=== PATIENT | male | born 1960 | race Caucasian/White ===

== ENCOUNTER 2019-08-03 18:32 | Inpatient (IN) | payer MEDICARE, OTHER ==
[~2019-08-03] VITALS: Ht 182.9 cm; Wt 77.1 kg
--- NOTE | 2019-08-03 18:32 | NUR ---
Surgical mask provided. Patient is AOx4, c/o chest pains for 5 years, worse for past 5 days. Patient admits to etoh abuse & being homeless.
--- NOTE | 2019-08-03 18:46 | NUR ---
Alesia ron in [facility] - 08/03/19 at [address] [email or web address], medicl screening exam in progress
--- NOTE | 2019-08-03 18:58 | NUR ---
Patient is resting comfortably on gurney, pending MD evaluation@this time
--- NOTE | 2019-08-03 19:09 | NUR ---
Dr [email or web address], medical screening exam in progress. Hands off report given to BRITTANY Johnson.
[2019-08-03 19:25] LABS: BASOPHILS # (AUTO) 0.1 K/uL (0.0-8.0); BASOPHILS % (AUTO) 2.3 % (0.0-2.0); EOSINOPHILS # (AUTO) 0.1 K/uL (0.0-0.7); EOSINOPHILS % (AUTO) 1.3 % (0.0-7.0); HEMATOCRIT 37.1 % (36.7-47.1); HEMOGLOBIN 12.5 g/dL (12.5-16.3); LYMPHOCYTES # (AUTO) 2.2 K/uL (20.0-40.0); LYMPHOCYTES % (AUTO) 35.3 % (20.5-51.5); MEAN CORPUSCULAR HEMOGLOBIN 35.6 uug (23.8-33.4); MEAN CORPUSCULAR HGB CONC 34 g/dL (32.5-36.3); MEAN CORPUSCULAR VOLUME 105.8 fL (73.0-96.2); MONOCYTES # (AUTO) 0.4 K/uL (2.0-10.0); MONOCYTES % (AUTO) 6.8 % (0.0-11.0); NEUTROPHILS # (AUTO) 3.5 K/uL (1.8-8.9); NEUTROPHILS % (AUTO) 54.3 % (38.5-71.5); PLATELET COUNT (AUTO) 72 K/uL (152-348); RED BLOOD CELL COUNT(AUTO) 3.51 MIL/uL (4.06-5.63); WHITE BLOOD COUNT (AUTO) 6.4 K/uL (3.6-10.2)
[2019-08-03 19:27] LABS: ABG BASE EXCESS 1.9 mmol/L; ABG HCO3 25.2 mmol/L; ABG PCO2 35.4 mmHg (35.0-45.0); ABG PH 7.471 (7.350-7.450); ABG PO2 76.7 mmHg (75.0-100.0); ABG SITE LEFT RADIAL; ABG TOTAL HEMOGLOBIN 13.3 G/dL (13.5-18.0); COHb 4.2 % (0.5-1.5); MetHb 0.4 % (0.0-1.5); O2Hb 89.6 % (94.0-97.0); VENT MODE Nasal Cannula
[2019-08-03 19:33] LABS: CREATININE 0.7 mg/dL (0.6-1.3); POTASSIUM 3.4 mmol/L (3.5-5.1)
[2019-08-03 19:47] LABS: BILIRUBIN,DIRECT 1.4 mg/dL (0.0-0.2); BILIRUBIN,TOTAL 1.9 mg/dL (0.2-1.0); TOTAL PROTEIN, SERUM 7.7 g/dL (6.4-8.2)
[2019-08-03 19:48] LABS: CREATINE KINASE, TOTAL 119 U/L (39-308)
[2019-08-03] MEDS ORDERED: ALBUTEROL SULFATE 8 GM HFA.AER.AD IH ONE (20:00)
[2019-08-03] MEDS ORDERED: ASPIRIN 325 MG TABLET PO ONE (20:00)
[2019-08-03] MEDS ORDERED: IV NS 1000 ML 1,000 ML IV ONE (20:00)
[2019-08-03] MEDS ORDERED: ASPIRIN 325 MG TABLET ONE (20:01)
[2019-08-03 20:09] LABS: FERRITIN 596 ng/mL (26-388); LACTATE DEHYDROGENASE 316 U/L (85-227)
--- NOTE | 2019-08-03 20:26 | NUR ---
Paged Epic panel for as requested by Dr Trivedi. Waiting for Wai SURVEY DATA TECHNICIAN to call back.
--- NOTE | 2019-08-03 20:35 | NUR ---
Dr Trivedi speaking with Judit Carreno national dedicated truck driver for Epic panel.
[2019-08-03] MEDS ORDERED: IOHEXOL 350 100 ML INFUS..BTL ONE (20:50)
[2019-08-03] MEDS ORDERED: SWABABLE VALVE TRANSFER SET EA MC ONE (20:50)
[2019-08-03] MEDS ORDERED: IV NORMAL SALINE 250 ML IV ONE (20:50)
[2019-08-03] MEDS ORDERED: ALBUTEROL SULFATE 8 GM HFA.AER.AD IH PRN (21:00)
[2019-08-03] MEDS ORDERED: ONDANSETRON 4 MG/2 ML VIAL IV PRN (21:00)
[2019-08-03] MEDS ORDERED: methylPREDNISolone SOD SUCC 125 MG/2 ML VIAL IV ONE (21:00)
[2019-08-03] MEDS ORDERED: LORAZEPAM 2 MG/1 ML VIAL IV PRN (21:30)
[2019-08-03] MEDS ORDERED: CHLORDIAZEPOXIDE HCL 25 MG CAPSULE PO ONE (22:30)
--- NOTE | 2019-08-03 22:36 | NUR ---
DR MON SPOKE WITH DOUG LARA MADE AWARE OF CTA RESULTS WILL ADMIT TO TELE.
--- NOTE | 2019-08-03 22:50 | NUR ---
PATIENT RECEIVED FROM ER. INTOXICATED AND UNABLE RESPOND CORRECTLY AND INCORPORATIVE. CUSSING AND YELLING AT STAFF MEMBERS.
[2019-08-03 23:30] VITALS: BP 113/68
--- NOTE | 2019-08-03 23:30 | NUR ---
PATIENT REFUSING SKIN CHECK. ASSESSMENT OF SKIN HAS A LOT OF MUD LIKE SUBSTANCE AND BLACK STAINS. AGGRESSIVE TOWARDS STAFF. MEDICATIONS ADMINISTERED. SNACKS PROVIDED. NSR ON TELE MONITOR.
[2019-08-03] MEDS: HYDROXYCHLOROQUINE SULFATE 200 MG TABLET PO SCH (23:35)
[2019-08-04 04:00] VITALS: BP 139/76
--- NOTE | 2019-08-04 04:03 | NUR ---
patient resting comfortably. no s/s of acute distress noted. NSR on tele monitor. IV site patent and intact. v/s stable. will continue to monitor.
--- NOTE | 2019-08-04 06:09 | NUR ---
Pt refused ABG.
[2019-08-04 06:41] LABS: BASOPHILS % (AUTO) 0.9 % (0.0-2.0); EOSINOPHILS % (AUTO) 0.1 % (0.0-7.0); HEMATOCRIT 37.9 % (36.7-47.1); HEMOGLOBIN 12.9 g/dL (12.5-16.3); LYMPHOCYTES # (AUTO) 0.3 K/uL (20.0-40.0); LYMPHOCYTES % (AUTO) 10.6 % (20.5-51.5); MEAN CORPUSCULAR HGB CONC 34 g/dL (32.5-36.3); MEAN CORPUSCULAR VOLUME 105.9 fL (73.0-96.2); MONOCYTES # (AUTO) 0.1 K/uL (2.0-10.0); MONOCYTES % (AUTO) 2.4 % (0.0-11.0); NEUTROPHILS # (AUTO) 2.4 K/uL (1.8-8.9); RED BLOOD CELL COUNT(AUTO) 3.58 MIL/uL (4.06-5.63)
[2019-08-04 06:53] LABS: THYROID STIMULATING HORMONE 2.788 mIU/mL (0.358-3.740)
[2019-08-04 08:32] LABS: CREATININE 0.8 mg/dL (0.6-1.3); POTASSIUM 3.5 mmol/L (3.5-5.1)
[2019-08-04] MEDS: MULTIVITAMINS,THERAPEUTIC TABLET PO SCH (08:37)
[2019-08-04] MEDS: THIAMINE HCL 100 MG TABLET PO SCH (08:37)
[2019-08-04] MEDS: NICOTINE 14 MG/24HR PATCH TD SCH (08:37)
[2019-08-04] MEDS: ACETAMINOPHEN 325 MG TABLET PO PRN ×2 (08:37→23:07)
[2019-08-04] MEDS: FOLIC ACID 1 MG TABLET PO SCH (08:37)
[2019-08-04 08:38] LABS: BILIRUBIN,TOTAL 1.7 mg/dL (0.2-1.0); PHOSPHOROUS 4.2 mg/dL (2.5-4.9); TOTAL PROTEIN, SERUM 6.9 g/dL (6.4-8.2)
[2019-08-04] MEDS: methylPREDNISolone SOD SUCC 40 MG/ML VIAL IV SCH ×3 (08:38→21:31)
[2019-08-04 08:48] LABS: PLATELET COUNT (AUTO) 51 K/uL (152-348); WHITE BLOOD COUNT (AUTO) 2.8 K/uL (3.6-10.2)
[2019-08-04] MEDS: HYDROXYCHLOROQUINE SULFATE 200 MG TABLET PO SCH (08:53)
[2019-08-04 08:57] LABS: MAGNESIUM 0.8 mg/dL (1.8-2.4)
[2019-08-04] MEDS ORDERED: ENOXAPARIN SODIUM 40 MG/0.4 ML DISP.SYRIN SQ SCH (09:00)
[2019-08-04] MEDS ORDERED: CHLORDIAZEPOXIDE HCL 5 MG CAPSULE PO SCH (09:00)
[2019-08-04 09:33] LABS: BAND % (MANUAL) 1 % (0-10); LYMPHOCYTES % (MANUAL) 7 % (20-40); MONOCYTES % (MANUAL) 3 % (2-10); NEUTROPHILS % (MANUAL) 89 % (42-75)
[2019-08-04 11:30] VITALS: BP 128/78
[2019-08-04] MEDS: MAGNESIUM SULFATE/D5W 100 ML IV SCH ×6 (12:26→19:08)
[2019-08-04] MEDS ORDERED: LORAZEPAM 2 MG/1 ML VIAL IV PRN (14:15)
[2019-08-04] MEDS ORDERED: IBUPROFEN 400 MG TABLET PO PRN (14:15)
[2019-08-04] MEDS ORDERED: FOLIC ACID 1 MG TABLET PO SCH (14:15)
[2019-08-04] MEDS ORDERED: MULTIVITAMINS,THERAPEUTIC TABLET PO SCH (14:15)
[2019-08-04] MEDS ORDERED: KETOROLAC TROMETHAMINE 30 MG INJ IVP ONE (14:15)
[2019-08-04] MEDS ORDERED: IPRATROPIUM/ALBUTEROL SULFATE 14.7 GM INHALER INH SCH (15:00)
[2019-08-04] MEDS ORDERED: ALBUTEROL SULFATE 2.5 MG/3 ML NEBU NEB PRN (15:15)
[2019-08-04 15:30] VITALS: BP 133/72
[2019-08-04] MEDS: IPRATROPIUM BROMIDE 0.5 MG/2.5 ML NEBU NEB SCH ×2 (16:04→19:43)
[2019-08-04] MEDS: ALBUTEROL SULFATE 2.5 MG/ 0.5 ML NEBU NEB SCH ×2 (16:04→19:43)
--- NOTE | 2019-08-04 18:10 | NUR ---
Jose Carlos Coronel DNP in the unit, received an order to change order for Ativan to 1mg IV Q2 hrs PRN. SCIENTOLOGIST made aware of platelet level with no new order, also magnesium level with new order put in. SCIENTOLOGIST also made aware of complain of pain on the right chest and SCIENTOLOGIST put in orders.
--- NOTE | 2019-08-04 19:00 | NUR ---
PATIENT ALERT ORIENTED, NO SOB NO CHEST PAIN. PATIENT ON TELE MONITOR SINUS RYTHM AT THIS TIME. PATIENT CONTINUE ON PAIN MANAGEMENT, PATIENT HAS NO SEIZURE NOTED AT THIS TIME. PATIENT HAS EPISODE OF AGITATION, VERBALLY ABUSIVE TO STAFF, ATTEND ALL NEEDS MUCH POSSIBLE, PATIENT REMAINS ON DROPLET PRECAUTIONS, CALL LIGHT WITHIN REACH.
[2019-08-04] MEDS: LORAZEPAM 2 MG/1 ML VIAL IV PRN (19:09)
[2019-08-04] MEDS: IBUPROFEN 400 MG TABLET PO PRN (19:09)
[2019-08-04 20:00] VITALS: BP 117/53
[2019-08-04] MEDS ORDERED: HYDROXYCHLOROQUINE SULFATE 200 MG TABLET PO SCH (21:00)
[2019-08-05] VITALS: BP 107/59
[2019-08-05] MEDS: IBUPROFEN 400 MG TABLET PO PRN ×3 (00:23→19:55)
[2019-08-05 04:00] VITALS: BP 111/69
[2019-08-05] MEDS: LORAZEPAM 2 MG/1 ML VIAL IV PRN ×7 (04:16→23:02)
[2019-08-05] MEDS: methylPREDNISolone SOD SUCC 40 MG/ML VIAL IV SCH ×2 (06:00→13:00)
--- NOTE | 2019-08-05 06:17 | NUR ---
NOTIFY DR MALDONADO PATIENT REQUEST FOR STRONGER PAIN MEDICATIONS, WITH NO NEW ORDER.
--- NOTE | 2019-08-05 06:18 | NUR ---
PATIENT ALERT ORIENTED, NO SOB NO CHEST PAIN, PATIENT REFUSED SOLU MEDROL, TYLENOL PO FOR PAIN. PATIENT GIVEN ATIVAN ORDERED, WITH SOME HELP, CONT TO MONITOR.
[2019-08-05] MEDS: IPRATROPIUM BROMIDE 0.5 MG/2.5 ML NEBU NEB SCH ×6 (07:17→22:05)
[2019-08-05] MEDS: ALBUTEROL SULFATE 2.5 MG/ 0.5 ML NEBU NEB SCH ×4 (07:17→15:11)
--- NOTE | 2019-08-05 07:30 | NUR ---
received pt. in bed. AOX4. awake. lets needs known to nurse. safety and fall prevention in place. will continue to monitor.
[2019-08-05] MEDS: THIAMINE HCL 100 MG TABLET PO SCH (09:00)
[2019-08-05] MEDS: ACETAMINOPHEN 325 MG TABLET PO PRN ×2 (09:00→21:55)
[2019-08-05] MEDS: MULTIVITAMINS,THERAPEUTIC TABLET PO SCH (09:00)
[2019-08-05] MEDS: NICOTINE 14 MG/24HR PATCH TD SCH (09:00)
[2019-08-05] MEDS: FOLIC ACID 1 MG TABLET PO SCH (09:00)
[2019-08-05 12:00] VITALS: BP 110/54
--- NOTE | 2019-08-05 12:13 | NUR ---
patient received from 2nd floor, alert, oriented x3, no sob, resp even nonlabored, patient only noted with mild shakiness. able to ambulate with contact guard. no distress noted
--- NOTE | 2019-08-05 12:15 | NUR ---
patient money dollar 104, and rosie card placed in safe
--- NOTE | 2019-08-05 13:00 | NUR ---
reported to [place] and transfered patient to [facility] in stable condition.
--- NOTE | 2019-08-05 15:18 | NUR ---
patient is alert, awake, no sob, resp even nonlabored, no sweating noted, noted with mild shakiness, patient also complained about feeling nauseous,zofran and ativan administered as ordered, continue to monitor for symptoms. no distress noted at this time
[2019-08-05 16:23] VITALS: BP 133/75
--- NOTE | 2019-08-05 18:23 | NUR ---
patient refused blood work today
--- NOTE | 2019-08-05 18:27 | NUR ---
patient room smell cigarette smoking, searched eveything in the room, could not find anything, patient denied that he smoked, engineering made aware for safety
--- NOTE | 2019-08-05 19:18 | NUR ---
PATIENT REQUESTED MOTRIN, OFFERED THEN CHANGED HIS MIND, AND STATED HE DOES NOT WANT IT.
--- NOTE | 2019-08-05 20:00 | NUR ---
Received patient awake and alert in bed. A/Ox3. Requesting pain medication stated he can have Motrin and patient agreed. Patient is on Ativan Q2H PRN for alcohol withdrawal. Noted is mild shaking. IVF on the left hand is intact and patent. Safety measures initiated. Bed is low and locked, call light within reach. Will continue to monitor. Addendum: 08/05/19 at 2333 by JOSE MARTINEZ RN Heplock on left hand *
[2019-08-05 20:24] VITALS: BP 129/79
--- NOTE | 2019-08-05 23:03 | NUR ---
Patient noted walking in the hallway, patient stated has back pain and feeling anxious. PRN Ativan is due and patient requested. Also noted patient with weak gait and holding on to wall when walking, provided patient with walker and stated much better. Also educated patient about Ativan administration and causes drowsiness. To call when he wants to get out of bed and patient verbalized understanding.
--- NOTE | 2019-08-06 01:05 | NUR ---
Noted patient walking towards elevators, asked patient where he's going stated he wanted to leave. Patient getting anxious stating he wants to go outside to smoke, explained to patient this is a non-smoking facility. He stated the doctor is suppose to find a place for him to go I said wait until the morning, social insurance adviser is working on it. Patient agreeable to go back to room, also requesting Ativan.
[2019-08-06] MEDS: LORAZEPAM 2 MG/1 ML VIAL IV PRN (01:09)
--- NOTE | 2019-08-06 02:31 | NUR ---
Noted strong cigarette smell coming from room, patient denying any smoking says he was lighting the tape from his IV. 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 Asked patient if he can give the cigarettes as well and that he can have both back when discharged, but patient stated that was the last cigarette. Patient also accidently took off IV inserted new one on the right forearm #22.
[2019-08-06] MEDS: IBUPROFEN 400 MG TABLET PO PRN (02:35)
[2019-08-06 04:00] VITALS: BP 109/64
--- NOTE | 2019-08-06 04:12 | NUR ---
Patient pulled out IV again, stated he doesn't want to insert a new one right now. Says he wants to do it later.
--- NOTE | 2019-08-06 05:25 | NUR ---
Inserted new IV on left forearm #22. Wrapped with Coban.
[2019-08-06 05:57] LABS: LYMPHOCYTES # (AUTO) 1.1 K/uL (20.0-40.0); MONOCYTES # (AUTO) 0.4 K/uL (2.0-10.0); NEUTROPHILS # (AUTO) 2.3 K/uL (1.8-8.9); WHITE BLOOD COUNT (AUTO) 3.9 K/uL (3.6-10.2)
[2019-08-06 05:59] LABS: BASOPHILS % (AUTO) 0.5 % (0.0-2.0); EOSINOPHILS % (AUTO) 0.6 % (0.0-7.0); HEMATOCRIT 33.6 % (36.7-47.1); HEMOGLOBIN 11.8 g/dL (12.5-16.3); LYMPHOCYTES % (AUTO) 27.6 % (20.5-51.5); MEAN CORPUSCULAR HEMOGLOBIN 37.4 uug (23.8-33.4); MEAN CORPUSCULAR HGB CONC 35 g/dL (32.5-36.3); MEAN CORPUSCULAR VOLUME 105.9 fL (73.0-96.2); MONOCYTES % (AUTO) 11.2 % (0.0-11.0); NEUTROPHILS % (AUTO) 60.1 % (38.5-71.5); RED BLOOD CELL COUNT(AUTO) 3.17 MIL/uL (4.06-5.63)
[2019-08-06 06:03] LABS: PLATELET COUNT (AUTO) 40 K/uL (152-348)
[2019-08-06 06:09] LABS: BILIRUBIN,TOTAL 2.5 mg/dL (0.2-1.0); CREATININE 0.8 mg/dL (0.6-1.3); PHOSPHOROUS 3.1 mg/dL (2.5-4.9); POTASSIUM 3.5 mmol/L (3.5-5.1); TOTAL PROTEIN, SERUM 6.2 g/dL (6.4-8.2)
[2019-08-06 06:12] LABS: MAGNESIUM 1.1 mg/dL (1.8-2.4)
--- NOTE | 2019-08-06 06:27 | NUR ---
Spoke to Dr. Mcnair about critical labs Mg 1.1 ordered 2gm magnesium and platelet is 40, NNO.
[2019-08-06 06:38] LABS: BAND % (MANUAL) 2 % (0-10); EOSINOPHILS % (MANUAL) 1 % (0-8); LYMPHOCYTES % (MANUAL) 30 % (20-40); MONOCYTES % (MANUAL) 9 % (2-10); NEUTROPHILS % (MANUAL) 58 % (42-75)
[2019-08-06] MEDS ORDERED: MAGNESIUM SULFATE/D5W 100 ML IV SCH (07:00)
[2019-08-06] MEDS: IPRATROPIUM BROMIDE 0.5 MG/2.5 ML NEBU NEB SCH (07:35)
[2019-08-06] MEDS ORDERED: MAGNESIUM SULFATE 2 GM in IV DEXTROSE 5% 100 ML IV SCH (08:00)
[2019-08-06] MEDS ORDERED: MAGNESIUM SULFATE 2 GM in IV DEXTROSE 5% 100 ML IV ONE (08:00)
--- NOTE | 2019-08-06 08:32 | NUR ---
LEFT AMA. IV D/C. ARMBAND REMOVED. AMA FORM SIGNED. C/O NOT BEING ABLE TO SMOKE TOO MANY RULES HE HAS LEFT
== END 2019-08-06 08:15 | disposition home or self-care (01) | DRG 555 ==
LOC: ER 18:34 → TELE 22:44 → TELE3 08-05 11:46 → MEDSURG3 08-05 12:00
PROVIDERS: ADMIT Registered Nurse; ATTEND Nurse Practitioner Acute Care
DX: M25.812 Other specified joint disorders, left shoulder (principal); J96.01 Acute respiratory failure with hypoxia; F10.239 Alcohol dependence with withdrawal, unspecified; S22.41XA Multiple fractures of ribs, right side, initial encounter for closed fracture; J44.1 Chronic obstructive pulmonary disease with (acute) exacerbation; D61.818 Other pancytopenia; E87.2 Acidosis; D68.9 Coagulation defect, unspecified; E87.6 Hypokalemia; F17.210 Nicotine dependence, cigarettes, uncomplicated; E83.42 Hypomagnesemia; F10.229 Alcohol dependence with intoxication, unspecified; Y90.8 Blood alcohol level of 240 mg/100 ml or more; D75.89 Other specified diseases of blood and blood-forming organs; G40.909 Epilepsy, unspecified, not intractable, without status epilepticus; G89.29 Other chronic pain; Z59.0 Homelessness; R74.0 Nonspecific elevation of levels of transaminase and lactic acid dehydrogenase [LDH]; K20.9 Esophagitis, unspecified; X58.XXXA Exposure to other specified factors, initial encounter; Y93.9 Activity, unspecified; Y92.89 Other specified places as the place of occurrence of the external cause; E88.09 Other disorders of plasma-protein metabolism, not elsewhere classified; E27.9 Disorder of adrenal gland, unspecified; K76.0 Fatty (change of) liver, not elsewhere classified
CPT/HCPCS: 36415; 36600; 70030-TC; 71045; 71275; 83605; 83615; 83690; 83735; 84100; 84443; 85025; 85730; 86140; 87040; 93005; 93307; 94640; 94664; A4663; G0378; J1885; J2060; J2405; J2920; J2930; J3475; J3535; J3590; J7030; J7050; J8499; Q9967; U0003-CS